=== PATIENT | male | born 1975 | race African-American/Black ===

== ENCOUNTER → 2020-09-21 09:16 | Outpatient (BNVA) | payer MEDICARE, MEDICAID, SELFPAY | PROVIDERS: PCP Hospitalist; Visit Provider Urology | DX: N40.1 Benign prostatic hyperplasia with lower urinary tract symptoms (principal); R35.1 Nocturia | CPT/HCPCS: 51798; 99212 ==

== ENCOUNTER 2021-10-15 13:04 | Emergency (ER) | payer MEDICARE, MEDICAID, SELFPAY ==
--- NOTE | ~2021-10-15 | XR_ITS ---
EXAMINATION: RIGHT HIP AND RIGHT KNEE X-RAYS CLINICAL INFORMATION: Fall. Pain. COMPARISON: None TECHNIQUE: One view of the pelvis, 2 views of the right hip and 4 views of the right knee FINDINGS: Pelvis and right hip: Bone alignment is normal. No fracture or dislocation is seen. There is arthritis at the right hip joint with joint space narrowing and osteophyte formation. Bones of the pelvis are unremarkable. The left hip joint is unremarkable. Right knee: Bone alignment is normal. No acute fracture or dislocation is seen seen. There is an old healed fracture of the distal femoral shaft. There is a severe arthritis at the femoral tibial and patellofemoral joints with joint space narrowing and osteophyte formation. There is no significant joint effusion. There may be an ossified intra-articular loose body posteriorly. There is atherosclerotic disease. XR/XR hip RT w PEL1V IMPRESSION: Pelvis and right hip: Degenerative changes. No fracture is seen. Right knee: Old healed femoral shaft fracture. Severe right hip arthritis.
--- NOTE | ~2021-10-15 | CT_ITS ---
EXAMINATION: CT HEAD WITHOUT CONTRAST CLINICAL INFORMATION: Fall. Head injury. COMPARISON: None TECHNIQUE: Contiguous axial imaging was performed from the skull base to vertex without intravenous administration of contrast. This CT examination was performed using dose optimization techniques as appropriate, variously including the following: *Automated exposure control *Adjustment of mA and/or kV according to patient size (this includes techniques or standardized protocols for targeted exams where dose is matched to indication/reason for exam; i.e. extremities or head) *Use of iterative reconstruction technique DLP: 1823 mGy-cm FINDINGS: Exam is limited due to motion artifact. There is no evidence of an extra-axial collection. There is no evidence of intra or extra-axial hemorrhage. The ventricles and extra-axial CSF spaces are appropriate. There is a large area of low attenuation in the left temporal, frontal and parietal lobes suggestive of infarct. No mass, mass effect or other infarct is seen. Review at bone windows is normal. No skull fracture is seen. Visualized paranasal sinuses, mastoid air cells and middle ears are clear. CT/CT head/brain wo con IMPRESSION: Limited exam due to motion artifact. Large left hemisphere infarct involving the frontal parietal and temporal lobes. No old exams are available for comparison and age cannot be accurately determined by CT however infarcts are probably old. This could be better evaluated with MRI clinically indicated.
--- NOTE | ~2021-10-15 | CT_ITS ---
EXAMINATION: CT CERVICAL SPINE WITHOUT CONTRAST CLINICAL INFORMATION: Fall. Head injury. COMPARISON: None TECHNIQUE: Axial images through the cervical spine without contrast. Sagittal and coronal reconstructions on the technologist workstation were performed. This CT examination was performed using dose optimization techniques as appropriate, variously including the following: *Automated exposure control *Adjustment of mA and/or kV according to patient size (this includes techniques or standardized protocols for targeted exams where dose is matched to indication/reason for exam; i.e. extremities or head) *Use of iterative reconstruction technique DLP: 877 mGy-cm FINDINGS: Bone alignment is normal. No fracture or dislocation is seen. There is degenerative spondylosis and degenerative disc disease from C3-C4 to C5-C6. Prevertebral soft tissues are normal. Visualized lung apices are clear. CT/CT cervical spine wo con IMPRESSION: Degenerative changes. No fracture seen. Fleischner guidelines were followed.
--- NOTE | ~2021-10-15 | XR_ITS ---
EXAMINATION: RIGHT HIP AND RIGHT KNEE X-RAYS CLINICAL INFORMATION: Fall. Pain. COMPARISON: None TECHNIQUE: One view of the pelvis, 2 views of the right hip and 4 views of the right knee FINDINGS: Pelvis and right hip: Bone alignment is normal. No fracture or dislocation is seen. There is arthritis at the right hip joint with joint space narrowing and osteophyte formation. Bones of the pelvis are unremarkable. The left hip joint is unremarkable. Right knee: Bone alignment is normal. No acute fracture or dislocation is seen seen. There is an old healed fracture of the distal femoral shaft. There is a severe arthritis at the femoral tibial and patellofemoral joints with joint space narrowing and osteophyte formation. There is no significant joint effusion. There may be an ossified intra-articular loose body posteriorly. There is atherosclerotic disease. XR/XR knee RT 4V IMPRESSION: Pelvis and right hip: Degenerative changes. No fracture is seen. Right knee: Old healed femoral shaft fracture. Severe right hip arthritis.
[2021-10-15 13:15] VITALS: BP 111/67; BP 114/69; PULSE 97; PULSE 98; RESP 16; TEMP 36.9; O2SAT 97; O2SAT 98; BMI 35.6
--- NOTE | 2021-10-15 14:08 | ECG_ITS ---
Test Reason : fall Blood Pressure : / mmHG Vent. Rate : 087 BPM Atrial Rate : 000 BPM P-R Int : 000 ms QRS Dur : 088 ms QT Int : 354 ms P-R-T Axes : 000 016 025 degrees QTc Int : 425 ms Poor data quality Normal sinus rhythm Nonspecific ST abnormality Abnormal ECG No previous ECGs available Referred By: Catherine Lopez Electronically Signed By:LYLA PEDRO MD
--- NOTE | 2021-10-15 14:29 | ED_ITS ---
HPI - Fall General Chief Complaint: Fall Stated Complaint: R HIP PAIN W/ROTATION S/P FALL OOB FROM SNF Time Seen by Provider: 10/15/21 14:06 Source: EMS Mode of arrival: EMS Limitations: physical limitation (Aphasia) History of Present Illness HPI Narrative: Patient is a 46-year-old male with a history of CVA and subsequent aphasia, type 2 diabetes mellitus, hypertension, COPD, obesity, dysphagia, GERD, hyperlipi demia, BPH, vascular dementia, schizophrenia. He is coming from a group home facility, [facility]. Facility staff report a fall to the floor from his bed with positive head strike, unknown LOC, and report of right leg pain. It is difficult to obtain history from patient due to his expressive aphasia. When asked review of symptoms he does report yes to pain of his right hip and right knee, reports hitting his head. denies headache, vision changes, chest pain, shortness of breath nausea, vomiting, abdominal pain pain to the left leg, pain to the arms. MD complaint: fall Onset (ago): hour(s) Fall from: out of bed Fall witnessed: yes, by living facility staff Place fall occurred: home Loss of consciousness: unsure Prolonged down time: no Related Data Home Medications Medication Instructions Recorded Confirmed COVID-19 vacc,mRNA(Pfizer)(PF) 30 ml IM 09/21/20 mcg/0.3 mL IM susp (purple) atorvastatin 40 mg tablet 40 mg PO DAILY 09/21/20 divalproex 250 mg tablet,delayed 250 mg PO BID 09/21/20 release divalproex 500 mg tablet,delayed 500 mg PO BID 09/21/20 release dulaglutide 1.5 mg/0.5 mL mg SUBCUT 09/21/20 subcutaneous pen injector famotidine 20 mg tablet 20 mg PO BID 09/21/20 haloperidol 5 mg tablet 5 mg PO BID 09/21/20 insulin human U-100 NPH-regulr SUBCUT 09/21/20 70-30 mix 100 unit/mL subcutaneous susp lactulose 10 gram/15 mL oral PO 09/21/20 solution levocarnitine 330 mg tablet mg PO 09/21/20 lisinopril 5 mg tablet 5 mg PO DAILY 09/21/20 metformin 1,000 mg tablet 1,000 mg PO BID 09/21/20 pregabalin 50 mg capsule mg PO 09/21/20 propranolol 10 mg tablet 10 mg PO BID 09/21/20 solifenacin 5 mg tablet mg PO 09/21/20 tamsulosin 0.4 mg capsule 0.4 mg PO DAILY 09/21/20 Allergies Allergy/AdvReac Type Severity Reaction Status Date / Time No Known Allergies Allergy Verified 09/21/20 09:35 Review of Systems Review of Systems: patient minimally verbal due to aphasia, able to answer yes / no to questions, this is baseline mentation per group home facility staff. Constitutional: No fever, chills, weakness. HEENT: No visual changes. No hearing loss, runny nose or sore throat. Skin: No rash or itching. Cardiovascular: No chest pain. No palpitations or pedal edema. Respiratory: No shortness of breath or cough. Gastrointestinal: No, nausea, vomiting or diarrhea. No abdominal pain or blood in stool. Genitourinary: No burning micturition. No urinary frequency or incontinence. Neurologic: No headache, dizziness, syncope, numbness or tingling in the extremities. No change in bowel or bladder control. Musculoskeletal: positive left hip pain. Positive left knee pain Hematologic: No bleeding or bruising. Psychiatric:No depression or anxiety. Yes all other systems are reviewed and are negative [facility] Past Medical History Medical History Benign prostatic hyperplasia with lower urinary tract symptoms BPH (benign prostatic hyperplasia) BPH associated with nocturia Schizophrenia Urinary incontinence Social History Social History Alcohol intake: never Advance Directives: No Advance Directives Information Provided: No Physical Exam Vital Signs: Vital Signs: Last Vital Signs Temp 98.4 F 10/15/21 13:15 Pulse 91 10/15/21 15:43 Resp 16 10/15/21 13:15 BP 126/66 10/15/21 15:43 Pulse Ox 98 10/15/21 15:43 BMI result Body Mass Index 35.6 Vital signs have been reviewed as normal and appeared to be correct. Blood pressure normal.? Heart rate normal.? Respiration rate normal. Temperature normal.? Oxygen saturation normal. Appearance: Alert.? unable to assess orientation due to aphasia. No acute distress.?Normal affect. Head: Normocephalic, atraumatic. No head, sinus or TMJ tenderness.? Eyes: Sclera white, conjunctiva pink. PERRL, 3 mm bilaterally. EOMi.?No Nystagmus. No raccoon eyes Ears: Bilateral ear canals clear, TM visible with good cone of light.? No Noel sign. ENT: Pharynx normal.?? Neck: Normal inspection.? Neck supple.?No midline cervical spine tenderness step-offs, deformities. CVS: Heart sounds normal. Normal heart rate and rhythm.? Pulses normal, palpable 2+ dorsalis pedis and posterior tibial pulses bilaterally.?? Respiratory: No respiratory distress.? Lung sounds clear to auscultation bilaterally?? Abdomen: Soft and non-tender. Normoactive bowel sounds. No pulsatile mass.?? Skin: + right medial great toe significant amount dry callused skin, with crack/ linear laceration, no active bleeding. Skin warm and dry.? Normal skin color.? Normal skin turgor.?? Extremities/ MSK: + right lower extremity externally rotated, no shortening, able to performed PROM of right lower extremity. No lower extremity edema.? No calf ttp? Neuro: Baseline ashasia. CN II-XII intact, normal sensory observed, normal coordination observed. Motor strength: right upper extremity 5 /5, left upper e xtremity 5 /5, right lower extremity 5 /5, left lower extremity 5/5.?Speech: baseline. Course Course Course Narrative: Patient is a 46-year-old male with a history of CVA and aphasia presenting to the emergency department for evaluation after a fall out of bed today with report of positive head strike and right leg pain. I spoke with nurse Beebe from [facility] One we advise is at baseline patient ambulates independently performs ADLs independently, is continent of bladder and bowel, and denies any residual weakness to the right or left side from prior CVA. Given patient's history and aphasia will obtain CBC to evaluate for leukocytosis or anemia, CMP to evaluate for abnormal electrolytes/ normal renal function/ abnormal hepatic function, troponin an EKG to evaluate for ischemia, urinalysis to evaluate for urinary tract infection, in addition to CT of the head and cervical spine to evaluate for ICH/ SAH/ fracture/ dislocation, and x-ray imaging of the right hip and right knee to evaluate for fracture dislocation. Reevaluation(s) Reevaluation #1: COVID-19 testing is negative. CBC and CMP is unremarkable. Troponin is elevated 52.4 no prior levels available for comparison, initial EKG is not conc erning for any acute ischemia, there is a notable amount of artifact, will obtain repeat EKG, and repeat troponin in 3 hours. Time: 15:06 Reevaluation #2: X-ray of the right hip reveals degenerative changes/ severe arthritis with no acute fracture dislocation. X-ray of the right knee indicates an old healed distal femoral shaft fracture, no acute fracture dislocation. Repeat examination of the right lower extremity reveals full AROM of the right hip and knee. He is ambulatory with slow steady gait, without assistance. Time: 16:00 Reevaluation #3: CT of the cervical spine indicates no acute fractures or dislocation. CT of the head reveals a large left hemisphere infarct involving the frontal parietal and temporal lobes there are no prior exams available for comparison and cannot determine age by CT. CT of head ordered due to concern for intracranial hemorrhage given head injury, no neurological deficit that was concerning for infarct. I consulted with hospitalist Dr. Gastelum regarding patient case. He is very familiar with this patient outside of the acute care setting, and he advises that he has no acute concerns for alterations in mental status or concerns of acute infarct, he feels it would be appropriate for patient to be discharged back to group home facility. This is most likely consistent with his history of CVA, rather than acute infarct, he has no acute neurological deficit. At this time, will await patient's repeat troponin to ensure negative delta troponin/ no acute ischemia, and patient will be transferred back to group home facility. ED attending physician Dr. Barron was agreeable with the care as well. Patient signed out to Christina Tarango NURSING PROGRAM MANAGER. Time: 17:20 MDM - Fall Medical Records Attestation: I reviewed the patient's medical records. Lab Data Attestation: I reviewed the patient's lab results. Result diagrams: 10/15/21 14:28 10/15/21 14: Labs: Lab Results 10/15/21 10/15/21 10/15/21 Range/Units 14:28 14:28 14:28 WBC 9.9 (4.8-10.8) X10*3/uL RBC 4.93 (4.60-5.80) X10*6/uL Hgb 14.6 (14.0-18.0) g/dl Hct 44.1 (42.0-52.0) % MCV 89.5 (80.0-98.0) fL MCH 29.6 (27.0-33.0) pg MCHC 33.1 (31.0-36.0) g/dl RDW 13.1 (11.0-16.0) % Plt Count 231 (160-400) X10*3/uL MPV 10.0 (9.4-12.4) fL Immature Gran % (Auto) 0.6 H (0.0-0.4) % Neut % (Auto) 61.3 (45-73) % Lymph % (Auto) 27.7 (20-40) % Coke % (Auto) 9.6 (2-11) % Eos % (Auto) 0.6 (0-4) % Baso % (Auto) 0.2 (0-2) % Lymph # (Auto) 2.8 (1.2-4.9) X10*3/uL Coke # (Auto) 1.0 (0.1-1.2) X10*3/uL Eos # (Auto) 0.1 (0.0-0.4) X10*3/uL Baso # (Auto) 0.0 (0.0-0.2) X10*3/uL Abs Immat Gran (auto) 0.06 H (0.00-0.03) X10*3/uL Absolute Neuts (auto) 6.1 (2.0-8.3) x10*3/uL Absolute Nucleated RBC 0.000 (0.0-0.012) X10*3/uL Nucleated RBC % (auto) 0.0 (0.0-0.2) /100WBC Sodium 138 (135-145) mmol/L Potassium 4.6 (3.3-5.1) mmol/L Chloride 103 (96-108) mmol/L Carbon Dioxide 27 (22-29) mmol/L Anion Gap 13 (12-20) BUN 10 (9-16) mg/dL Creatinine 0.91 (0.5-1.4) mg/dL Estim Creat Clear Calc 155.5 Estimated GFR > 60 Random Glucose 94 (60-115) mg/dL Calcium 9.8 (8.4-10.2) mg/dL Magnesium 2.0 (1.6-2.6) mg/dL Total Bilirubin 0.4 (0.0-1.0) mg/dL AST 30 (5-37) U/L ALT 32 (0-40) U/L Alkaline Phosphatase 89 (39-117) U/L Troponin I High Sens 52.4 H (<3.5-35.0) ng/L Total Protein 7.2 (6.5-8.0) g/dL Albumin 4.1 (3.5-5.0) g/dL COVID-19 (RITESH) (Negative) COVID-19 Clin Com 10/15/21 Range/Units 14:28 WBC (4.8-10.8) X10*3/uL RBC (4.60-5.80) X10*6/uL Hgb (14.0-18.0) g/dl Hct (42.0-52.0) % MCV (80.0-98.0) fL MCH (27.0-33.0) pg MCHC (31.0-36.0) g/dl RDW (11.0-16.0) % Plt Count (160-400) X10*3/uL MPV (9.4-12.4) fL Immature Gran % (Auto) (0.0-0.4) % Neut % (Auto) (45-73) % Lymph % (Auto) (20-40) % Coke % (Auto) (2-11) % Eos % (Auto) (0-4) % Baso % (Auto) (0-2) % Lymph # (Auto) (1.2-4.9) X10*3/uL Coke # (Auto) (0.1-1.2) X10*3/uL Eos # (Auto) (0.0-0.4) X10*3/uL Baso # (Auto) (0.0-0.2) X10*3/uL Abs Immat Gran (auto) (0.00-0.03) X10*3/uL Absolute Neuts (auto) (2.0-8.3) x10*3/uL Absolute Nucleated RBC (0.0-0.012) X10*3/uL Nucleated RBC % (auto) (0.0-0.2) /100WBC Sodium (135-145) mmol/L Potassium (3.3-5.1) mmol/L Chloride (96-108) mmol/L Carbon Dioxide (22-29) mmol/L Anion Gap (12-20) BUN (9-16) mg/dL Creatinine (0.5-1.4) mg/dL Estim Creat Clear Calc Estimated GFR Random Glucose (60-115) mg/dL Calcium (8.4-10.2) mg/dL Magnesium (1.6-2.6) mg/dL Total Bilirubin (0.0-1.0) mg/dL AST (5-37) U/L ALT (0-40) U/L Alkaline Phosphatase (39-117) U/L Troponin I High Sens (<3.5-35.0) ng/L Total Protein (6.5-8.0) g/dL Albumin (3.5-5.0) g/dL COVID-19 (RITESH) Negative (Negative) COVID-19 Clin Com See Note Imaging Data CT scan - head: Radiologist's impression: Head: IMPRESSION: Limited exam due to motion artifact. Large left hemisphere infarct involving the frontal parietal and temporal lobes. No old exams are available for comparison and age cannot be accurately determined by CT however infarcts are probably old. This could be better evaluated with MRI clinically indicated. Cervical spine IMPRESSION: Degenerative changes. No fracture seen.? XR right hip and right knee: Radiologist's impression: IMPRESSION: Pelvis and right hip: Degenerative changes. No fracture is seen. ? Right knee: Old healed femoral shaft fracture. Severe right hip arthritis. ECG Data Attestation: I personally reviewed and interpreted this ECG as follows: ECG interpretation date: 10/15/21 ECG interpretation time: 14:45 Prior ECG tracings: not available for review Interpretation: Rate: 87 Rhythm:? sinus rhythm Criders:? normal Normal QRS complex.?? ST T wave :?? no ST elevation, no ST depression, no T-wave inversion qTC: 425 prior studies:? none The study has been interpreted contemporaneously by me. repeat EKG 10/15/2021 15:44 Rate: 87 Rhythm:? normal sinus rhythm Criders:? normal Normal P waves.? Normal SACHI.?? Normal QRS complex.?? ST T wave :??no ST elevation, no ST depression, no T-wave inversion qTC: 428 The study has been interpreted contemporaneously by me. Discharge Plan Discharge Clinical Impression: Fall, Arthritis of hip Patient Disposition: [facility] Transfer Details: Transfer back to [facility] Additional Instructions: Patient was evaluated in the emergency department after a fall sustaining an injury to the right hip and with reports of head strike. CT reveals no acute intracranial hemorrhage, there is a large left hemisphere infarct involving the frontal parietal and temporal lobes with no comparison of prior infarct, this is most likely consistent with prior CVA. X-ray of the right knee was normal x- ray of the right hip reveals severe arthritis. Patient should return to the emergency department with any new or worsening symptoms or concerns
[2021-10-15 14:32] LABS: MANUAL DIFF FLAG NO
[2021-10-15 14:34] LABS: Basophils Percent Auto 0.2 % (0-2); Eosinophils Absolute Auto 0.1 X10*3/uL (0.0-0.4); Eosinophils Percent Auto 0.6 % (0-4); Hematocrit 44.1 % (42.0-52.0); Hemoglobin 14.6 g/dl (14.0-18.0); Imm Gran Abs Auto 0.06 X10*3/uL (0.00-0.03); Imm Gran Pct Auto 0.6 % (0.0-0.4); Lymphocytes Absolute Auto 2.8 X10*3/uL (1.2-4.9); Lymphocytes Percent Auto 27.7 % (20-40); Mean Corpuscular HGB Conc 33.1 g/dl (31.0-36.0); Mean Corpuscular Hemoglobin 29.6 pg (27.0-33.0); Mean Corpuscular Volume 89.5 fL (80.0-98.0); Monocytes Percent Auto 9.6 % (2-11); Neutrophils Absolute Auto 6.1 x10*3/uL (2.0-8.3); Neutrophils Percent Auto 61.3 % (45-73); Platelet Count 231 X10*3/uL (160-400); Red Blood Count 4.93 X10*6/uL (4.60-5.80); Red Cell Distribution Width 13.1 % (11.0-16.0); White Blood Count 9.9 X10*3/uL (4.8-10.8)
[2021-10-15 14:54] LABS: COVID-19 Test Negative (Negative)
[2021-10-15 14:55] LABS: IDNOW Serial# 9DD0AD1C
[2021-10-15 15:01] LABS: Alanine Aminotransferase 32 U/L (0-40); Albumin Level 4.1 g/dL (3.5-5.0); Alkaline Phosphatase 89 U/L (39-117); Anion Gap 13 (12-20); Aspartate Amino Transferase 30 U/L (5-37); Bilirubin Total 0.4 mg/dL (0.0-1.0); Blood Urea Nitrogen 10 mg/dL (9-16); Calcium 9.8 mg/dL (8.4-10.2); Carbon Dioxide 27 mmol/L (22-29); Chloride 103 mmol/L (96-108); Creatinine Clr Calc Pharmacy 155.5; Estimated Glomerular Filt Rate > 60; Glucose Random 94 mg/dL (60-115); Potassium 4.6 mmol/L (3.3-5.1); Sodium 138 mmol/L (135-145); Total Protein 7.2 g/dL (6.5-8.0); Troponin-I High Sensitivity 52.4 ng/L (<3.5-35.0)
--- NOTE | 2021-10-15 15:12 | ECG_ITS ---
Test Reason : REPEAT Blood Pressure : / mmHG Vent. Rate : 087 BPM Atrial Rate : 087 BPM P-R Int : 114 ms QRS Dur : 086 ms QT Int : 356 ms P-R-T Axes : 066 020 024 degrees QTc Int : 428 ms Normal sinus rhythm Normal ECG When compared with ECG of 15-OCT-2021 14:34, No significant changes seen Referred By: Catherine Lopez Electronically Signed By:LYLA PEDRO MD
[2021-10-15] MEDS: Acetaminophen 325 MG TABLET 975 MG PO (15:40)
[2021-10-15 15:43] VITALS: BP 126/66; PULSE 91; O2SAT 98
[2021-10-15 18:17] LABS: Troponin-I High Sensitivity 36.6 ng/L (<3.5-35.0)
== END 2021-10-15 20:07 | disposition skilled nursing facility (03) ==
PROVIDERS: Nurse Practitioner Family; Emergency Provider Emergency Medicine
DX: M16.11 Unilateral primary osteoarthritis, right hip (principal); M25.551 Pain in right hip; M25.561 Pain in right knee; Z91.81 History of falling; Z20.822 Contact with and (suspected) exposure to COVID-19; I69.320 Aphasia following cerebral infarction; I10 Essential (primary) hypertension; F01.50 Vascular dementia, unspecified severity, without behavioral disturbance, psychotic disturbance, mood disturbance, and anxiety; E11.9 Type 2 diabetes mellitus without complications; E78.5 Hyperlipidemia, unspecified; F20.9 Schizophrenia, unspecified; Z79.4 Long term (current) use of insulin
CPT/HCPCS: 36415; 70450; 72125; 73502; 73564; 80053; 83735; 84484; 85025; 87635; 93005; 99284

== ENCOUNTER 2021-12-21 15:43 | Emergency (ER) | payer MEDICARE, MEDICAID, SELFPAY ==
--- NOTE | ~2021-12-21 | CT_ITS ---
EXAMINATION: CT HEAD WITHOUT CONTRAST (STROKE PROTOCOL) CLINICAL INFORMATION: Stroke protocol. Right-sided weakness. COMPARISON: CT head 10/15/2021 TECHNIQUE: Contiguous axial imaging was performed from the skull base to vertex without intravenous administration of contrast. This CT examination was performed using dose optimization techniques as appropriate, variously including the following: *Automated exposure control *Adjustment of mA and/or kV according to patient size (this includes techniques or standardized protocols for targeted exams where dose is matched to indication/reason for exam; i.e. extremities or head) *Use of iterative reconstruction technique DLP: 922 mGy-cm FINDINGS: Focal encephalomalacia from old infarct in left MCA territory unchanged since prior CT exam. There are 2 additional areas of hypodensity involving the brain parenchyma. There is focal encephalomalacia in the right medial frontal lobe and in the left occipital lobe both of which were not present on the prior study of 10/15/2021. There is no intracranial hemorrhage, hematoma, or extra-axial fluid collection. The ventricles are normal in size. There is no hydrocephalus, edema, or mass effect. The kumar-white matter differentiation appears symmetric. The visualized sinuses and middle ears and mastoid air cells show no significant mucosal thickening. There are no air-fluid levels. CT/CT head for stroke IMPRESSION: 1. There is no intracranial hemorrhage. No mass effect. 2. Old left MCA territory infarct. 3. 2 focal areas of focal low attenuation, encephalomalacia, involving the right frontal lobe and left occipital lobe. These are new since CT 10/15/2021. MRI may be helpful for further assessment. This critical result was discussed Robinson GATES@4:07pm on 12/21/2021. It was ascertained that the content and urgency of the report was understood at the time of direct communication.
--- NOTE | ~2021-12-21 | CT_ITS ---
EXAMINATION: CT ANGIOGRAM HEAD CT ANGIOGRAM NECK CLINICAL INFORMATION: Right-sided weakness. Stroke. COMPARISON: CT head from 12/21/2021 and 10/15/2021. TECHNIQUE: Initial noncontrast field services director imaging of the head and neck was performed. Comparison is made with noncontrast head CT from earlier today. Test bolus sequences followed by intravenous administration 140 mL of Omnipaque 350. Helical imaging was performed in the axial plane from the aortic arch to the skull vertex. Delayed postcontrast imaging of the head was also performed. The data was processed at the biochemistry technologist's workstation for generation of MIP sequences. Angled MIPs and volume rendered reformatted images were also generated at an offline 3D workstation. Stenoses are assessed in accordance with NASCET criteria unless otherwise indicated. This CT examination was performed using dose optimization techniques as appropriate, variously including the following: *Automated exposure control. *Adjustment of mA and/or kV according to patient size (this includes techniques or standardized protocols for targeted exams where dose is matched to indication/reason for exam; i.e. extremities or head). *Use of iterative reconstruction technique. DLP: 2525 mGy-cm FINDINGS: CT Head: Significantly motion degraded exam. There are chronic regions of encephalomalacia within the left frontotemporal lobes, anterior parasagittal right frontal lobe, and right deep frontal white matter. There is a region of encephalomalacia within the inferior aspect of the left occipital lobe that is new compared to exam from 10/15/2021. Wallerian degeneration of the left cerebral peduncle. No demonstrated evidence of acute intracranial hemorrhage. Exvacuodilatation of the lateral ventricles. Otherwise, the ventricles and sulcal spaces are proportional without evidence of obstructive hydrocephalus. No midline shift. No demonstrated extra-axial fluid collection. No demonstrated pathologic intra-axial enhancement. Normal opacification of the superior sagittal, straight, transverse, and sigmoid sinuses. No acute soft tissue or osseous abnormalities. Mild mucosal thickening of the paranasal sinuses. The mastoid air cells and middle ear cavities are clear. CT Neck: The thyroid gland and remaining cervical soft tissues are within normal limits. Straightening of the normal cervical lordosis. Moderate degenerative disc disease from C3-C6 with disc-osteophyte complex formation. Facet and uncovertebral joint arthropathy leads to osseous encroachment on the neural foramina from C2-C6. CT Upper Chest: The visualized lung apices and upper mediastinum are within normal limits. Neck CTA: Moderately motion degraded exam. Aortic Arch: Normal contour and caliber. Two vessel branching pattern of the arch with left common carotid artery arising from the brachiocephalic trunk. Great Vessel Origins: No significant stenosis of the branch origins. Right Common Carotid Artery: No focal stenosis or occlusion. Cervical Right Internal Carotid Artery: Mild calcific atherosclerotic disease of the carotid bulb and proximal internal carotid artery without flow-limiting stenosis. Left Common Carotid Artery: No focal stenosis or occlusion. Cervical Left Internal Carotid Artery: Mild calcific atherosclerotic disease of the carotid bulb and proximal internal carotid artery without flow-limiting stenosis. Cervical Right Vertebral Artery: Co-dominant. No demonstrated focal stenosis or occlusion. Cervical Left Vertebral Artery: Co-dominant. No demonstrated focal stenosis or occlusion. Brain CTA: CTA of the head is nondiagnostic secondary to significant motion degradation. On the limited views of the intracranial structures, there is maintained opacification of the intracranial segments of the internal carotid arteries bilaterally. There is at least partial opacification of the proximal M1 segments of the middle cerebral arteries bilaterally. There appears to be diminished opacification of the lateral aspect of the M1 segment of the left MCA with diminished arborization in the region of chronic encephalomalacia. Relatively normal arborization of the right MCA. Opacification of the distal segments of the right FAHAD appear to some degree diminished relative to the contralateral side. Maintained opacification of the basilar artery. The hinging machine operator are not well imaged on this exam. CT/CT angio head neck stroke IMPRESSION: Significantly motion degraded exam. CTA of the head is essentially nondiagnostic. CT of the neck and mildly to moderately motion degraded without demonstrated evidence of proximal occlusion or flow-limiting stenosis. Chronic regions of encephalomalacia within the left frontotemporal lobes and right frontal lobe. There is also a region of encephalomalacia within the left occipital lobe has chronic appearing characteristics but is new compared to exam from 10/15/2021. No evidence of acute intracranial hemorrhage. Moderate to advanced multilevel degenerative spondylosis arthropathy of the cervical spine. This critical result was discussed with Dr. Montero at 16:51 on 12/21/2021 and it was ascertained that the content and urgency of the report was understood at the time of direct communication.
--- NOTE | 2021-12-21 15:44 | ECG_ITS ---
Test Reason : SEIZURE Blood Pressure : / mmHG Vent. Rate : 084 BPM Atrial Rate : 084 BPM P-R Int : 136 ms QRS Dur : 094 ms QT Int : 366 ms P-R-T Axes : 071 009 027 degrees QTc Int : 432 ms Normal sinus rhythm Normal ECG When compared with ECG of 15-OCT-2021 15:44, No significant change was found Referred By: Robinson Gonzalez Electronically Signed By:LYLA PEDRO MD
[2021-12-21 15:46] VITALS: BP 127/80; PULSE 80; O2SAT 100
[2021-12-21 15:53] LABS: Prothrombin Time Whole Bld POC 13.1 sec (11.1-13.5); ~PT, ~INR - Anti Coag Clinic 1.1 (0.9-1.1)
[2021-12-21 15:54] LABS: Glucose, Whole Blood 84 mg/dL (60-115)
[2021-12-21] MEDS: iohexoL 350 MG/ML 100 ML INFUS..BTL IV (16:22)
--- NOTE | 2021-12-21 16:30 | ED.NEUROSD ---
HPI - Neuro Symptoms/Deficit General Chief Complaint: Stroke Stated Complaint: STROKE ALERT Time Seen by Provider: 12/21/21 15:44 Source: EMS and RN notes reviewed Mode of arrival: EMS Limitations: language barrier History of Present Illness HPI Narrative: [facility] is 46 [facility] with history of left MCA infarct with left-sided weakness and aphasia patient is independent as such with weakness today just prior to arrival at 15:00 patient staff noticed patient is more confused and has difficulty in walking. With increased weakness on the right side with increased confusion not able to follow any command . By the time patient had a CT scan done at 16:15 patient return to baseline moving his right extremities saying all more awake answering question to yes to all questions she is his baseline CT scan showed 2 new focal area of low attenuation in the right frontal and left occipital area which were new from 10/15/2021 patient is on baby aspirin Related Data Home Medications Medication Instructions Recorded Confirmed COVID-19 vacc,mRNA(Pfizer)(PF) 30 ml IM 09/21/20 mcg/0.3 mL IM susp (purple) atorvastatin 40 mg tablet 40 mg PO DAILY 09/21/20 divalproex 250 mg tablet,delayed 250 mg PO BID 09/21/20 release divalproex 500 mg tablet,delayed 500 mg PO BID 09/21/20 release dulaglutide 1.5 mg/0.5 mL mg SUBCUT 09/21/20 subcutaneous pen injector famotidine 20 mg tablet 20 mg PO BID 09/21/20 haloperidol 5 mg tablet 5 mg PO BID 09/21/20 insulin human U-100 NPH-regulr SUBCUT 09/21/20 70-30 mix 100 unit/mL subcutaneous susp lactulose 10 gram/15 mL oral PO BID 09/21/20 solution levocarnitine 330 mg tablet 660 mg PO TID 09/21/20 12/21/21 lisinopril 5 mg tablet 10 mg PO DAILY 09/21/20 12/21/21 metformin 1,000 mg tablet 1,000 mg PO BID 09/21/20 pregabalin 50 mg capsule mg PO 09/21/20 propranolol 10 mg tablet 10 mg PO BID 09/21/20 solifenacin 5 mg tablet mg PO 09/21/20 tamsulosin 0.4 mg capsule 0.4 mg PO BEDTIME 09/21/20 12/21/21 acetaminophen 325 mg tablet 650 mg PO Q4H PRN 12/21/21 12/21/21 (Tylenol) aspirin 81 mg chewable tablet 81 mg PO DAILY 12/21/21 12/21/21 bisacodyl 10 mg rectal suppository 10 mg [place] DAILY PRN 12/21/21 12/21/21 simethicone 80 mg tablet 80 mg PO TID 12/21/21 12/21/21 solifenacin 5 mg tablet (Vesicare) 5 mg PO DAILY 12/21/21 12/21/21 Previous Rx's Medication Instructions Recorded clopidogrel 75 mg tablet (Plavix) 75 mg PO DAILY #30 tab 12/21/21 Allergies Allergy/AdvReac Type Severity Reaction Status Date / Time No Known Allergies Allergy Verified 09/21/20 09:35 Review of Systems Review of Systems: Yes Unobtainable due to mental status [facility] Past Medical History Medical History Benign prostatic hyperplasia with lower urinary tract symptoms BPH (benign prostatic hyperplasia) BPH associated with nocturia Schizophrenia Urinary incontinence Social History Social History Alcohol intake: never Patient Tobacco Use Status: Never used Tobacco Use of substances other than those prescribed or required for medical reasons: No Advance Directives: No Advance Directives Information Provided: No Physical Exam Vital Signs: Vital Signs: Last Vital Signs Temp 98.3 F 12/21/21 23:29 Pulse 79 12/21/21 23:29 Resp 16 12/21/21 23:29 BP 142/84 H 12/21/21 23:29 Pulse Ox 99 12/21/21 23:29 BMI result Body Mass Index 0.0 Appearance: Alert. Oriented 1. No acute distress. Eyes: PERRLA, No Nystagmus ENT: Pharynx normal. Oral Mucosa moist Neck: Normal inspection. Neck supple. CVS: Normal heart rate and rhythm. Pulses normal. Respiratory: No respiratory distress. Equal air entry bilateral, no wheezing/rales/rhonchi Abdomen: Soft and nontender. Bowel sounds are present, no mass palpable, no CVA tenderness Skin: Skin warm and dry. Normal skin color. Normal skin turgor. Extremities: No lower extremity edema. No calf tenderness Neuro: Oriented X 3. Aphasic answering all the questions to yes Right-sided dense hemiparesis able to lift his upper extremities and lower extremities normally on the left side, able to lift right leg upper extremity and lower extremity with no drift but weakness 4/5 MDM - Neuro Symptoms/Deficit MDM Narrative Medical decision making narrative: On arrival patient was confused not able to come follow commands within 25 minutes of arrival patient was able to move his right upper extremity lower extremity . CTH negative for any acute infarct, CTA H/N negative for LVO Case discussed Dr. Whiting neurologist advised to add Plavix along with aspirin patient able to ambulate without customer care assistant in the ER at the time of discharge to residential Lab Data Attestation: I reviewed the patient's lab results. Result diagrams: 12/21/21 16:45 12/21/21 16:45 Labs: Lab Results 12/21/21 12/21/21 12/21/21 Range/Units 15:46 15:47 16:45 WBC 7.4 (4.8-10.8) X10*3/uL RBC 4.86 (4.60-5.80) X10*6/uL Hgb 14.2 (14.0-18.0) g/dl Hct 43.3 (42.0-52.0) % MCV 89.1 (80.0-98.0) fL MCH 29.2 (27.0-33.0) pg MCHC 32.8 (31.0-36.0) g/dl RDW 13.0 (11.0-16.0) % Plt Count 238 (160-400) X10*3/uL MPV 9.5 (9.4-12.4) fL Immature Gran % (Auto) 0.4 (0.0-0.4) % Neut % (Auto) 36.5 L (45-73) % Lymph % (Auto) 50.1 H (20-40) % Hemphill % (Auto) 11.3 H (2-11) % Eos % (Auto) 1.4 (0-4) % Baso % (Auto) 0.3 (0-2) % Lymph # (Auto) 3.7 (1.2-4.9) X10*3/uL Hemphill # (Auto) 0.8 (0.1-1.2) X10*3/uL Eos # (Auto) 0.1 (0.0-0.4) X10*3/uL Baso # (Auto) 0.0 (0.0-0.2) X10*3/uL Abs Immat Gran (auto) 0.03 (0.00-0.03) X10*3/uL Absolute Neuts (auto) 2.7 (2.0-8.3) x10*3/uL Absolute Nucleated RBC 0.000 (0.0-0.012) X10*3/uL Nucleated RBC % (auto) 0.0 (0.0-0.2) /100WBC PT (9.9-13.0) SEC Whole Blood PT 13.1 (11.1-13.5) sec INR (0.9-1.1) Whole Blood INR 1.1 (0.9-1.1) APTT (24.1-38.0) SEC Sodium (135-145) mmol/L Potassium (3.3-5.1) mmol/L Chloride (96-108) mmol/L Carbon Dioxide (22-29) mmol/L Anion Gap (12-20) BUN (9-16) mg/dL Creatinine (0.5-1.4) mg/dL Estim Creat Clear Calc Estimated GFR POC Glucose 84 (60-115) mg/dL Random Glucose (60-115) mg/dL Calcium (8.4-10.2) mg/dL Total Bilirubin (0.0-1.0) mg/dL Direct Bilirubin (0.0-0.5) mg/dL AST (5-37) U/L ALT (0-40) U/L Alkaline Phosphatase (39-117) U/L Ammonia (13-55) umol/L Total Creatine Kinase (38-174) U/L Troponin I High Sens (<3.5-35.0) ng/L Total Protein (6.5-8.0) g/dL Albumin (3.5-5.0) g/dL Urine Color Urine Appearance Urine pH (5.0-8.0) Ur Specific Douglas (1.005-1.025) Urine Protein (NEG-TRACE) MG/DL Urine Glucose (UA) (NEG) MG/DL Urine Ketones (NEG) MG/DL Urine Blood (NEG) Urine Nitrite (NEG) Ur Leukocyte Esterase (NEG) 12/21/21 12/21/21 12/21/21 Range/Units 16:45 16:45 16:45 WBC (4.8-10.8) X10*3/uL RBC (4.60-5.80) X10*6/uL Hgb (14.0-18.0) g/dl Hct (42.0-52.0) % MCV (80.0-98.0) fL MCH (27.0-33.0) pg MCHC (31.0-36.0) g/dl RDW (11.0-16.0) % Plt Count (160-400) X10*3/uL MPV (9.4-12.4) fL Immature Gran % (Auto) (0.0-0.4) % Neut % (Auto) (45-73) % Lymph % (Auto) (20-40) % Hemphill % (Auto) (2-11) % Eos % (Auto) (0-4) % Baso % (Auto) (0-2) % Lymph # (Auto) (1.2-4.9) X10*3/uL Hemphill # (Auto) (0.1-1.2) X10*3/uL Eos # (Auto) (0.0-0.4) X10*3/uL Baso # (Auto) (0.0-0.2) X10*3/uL Abs Immat Gran (auto) (0.00-0.03) X10*3/uL Absolute Neuts (auto) (2.0-8.3) x10*3/uL Absolute Nucleated RBC (0.0-0.012) X10*3/uL Nucleated RBC % (auto) (0.0-0.2) /100WBC PT 12.6 (9.9-13.0) SEC Whole Blood PT (11.1-13.5) sec INR 1.1 (0.9-1.1) Whole Blood INR (0.9-1.1) APTT 29.8 (24.1-38.0) SEC Sodium 137 (135-145) mmol/L Potassium 4.5 (3.3-5.1) mmol/L Chloride 104 (96-108) mmol/L Carbon Dioxide 27 (22-29) mmol/L Anion Gap 11 L (12-20) BUN 9 (9-16) mg/dL Creatinine 0.91 (0.5-1.4) mg/dL Estim Creat Clear Calc TNP Estimated GFR > 60 POC Glucose (60-115) mg/dL Random Glucose 85 (60-115) mg/dL Calcium 9.8 (8.4-10.2) mg/dL Total Bilirubin 0.6 (0.0-1.0) mg/dL Direct Bilirubin 0.2 (0.0-0.5) mg/dL AST 24 (5-37) U/L ALT 47 H (0-40) U/L Alkaline Phosphatase 94 (39-117) U/L Ammonia (13-55) umol/L Total Creatine Kinase 467 H (38-174) U/L Troponin I High Sens < 3.5 D (<3.5-35.0) ng/L Total Protein 7.0 (6.5-8.0) g/dL Albumin 4.1 (3.5-5.0) g/dL Urine Color Urine Appearance Urine pH (5.0-8.0) Ur Specific Douglas (1.005-1.025) Urine Protein (NEG-TRACE) MG/DL Urine Glucose (UA) (NEG) MG/DL Urine Ketones (NEG) MG/DL Urine Blood (NEG) Urine Nitrite (NEG) Ur Leukocyte Esterase (NEG) 12/21/21 12/21/21 Range/Units 16:45 17:35 WBC (4.8-10.8) X10*3/uL RBC (4.60-5.80) X10*6/uL Hgb (14.0-18.0) g/dl Hct (42.0-52.0) % MCV (80.0-98.0) fL MCH (27.0-33.0) pg MCHC (31.0-36.0) g/dl RDW (11.0-16.0) % Plt Count (160-400) X10*3/uL MPV (9.4-12.4) fL Immature Gran % (Auto) (0.0-0.4) % Neut % (Auto) (45-73) % Lymph % (Auto) (20-40) % Hemphill % (Auto) (2-11) % Eos % (Auto) (0-4) % Baso % (Auto) (0-2) % Lymph # (Auto) (1.2-4.9) X10*3/uL Hemphill # (Auto) (0.1-1.2) X10*3/uL Eos # (Auto) (0.0-0.4) X10*3/uL Baso # (Auto) (0.0-0.2) X10*3/uL Abs Immat Gran (auto) (0.00-0.03) X10*3/uL Absolute Neuts (auto) (2.0-8.3) x10*3/uL Absolute Nucleated RBC (0.0-0.012) X10*3/uL Nucleated RBC % (auto) (0.0-0.2) /100WBC PT (9.9-13.0) SEC Whole Blood PT (11.1-13.5) sec INR (0.9-1.1) Whole Blood INR (0.9-1.1) APTT (24.1-38.0) SEC Sodium (135-145) mmol/L Potassium (3.3-5.1) mmol/L Chloride (96-108) mmol/L Carbon Dioxide (22-29) mmol/L Anion Gap (12-20) BUN (9-16) mg/dL Creatinine (0.5-1.4) mg/dL Estim Creat Clear Calc Estimated GFR POC Glucose (60-115) mg/dL Random Glucose (60-115) mg/dL Calcium (8.4-10.2) mg/dL Total Bilirubin (0.0-1.0) mg/dL Direct Bilirubin (0.0-0.5) mg/dL AST (5-37) U/L ALT (0-40) U/L Alkaline Phosphatase (39-117) U/L Ammonia 36 (13-55) umol/L Total Creatine Kinase (38-174) U/L Troponin I High Sens (<3.5-35.0) ng/L Total Protein (6.5-8.0) g/dL Albumin (3.5-5.0) g/dL Urine Color YELLOW Urine Appearance CLEAR Urine pH 7.0 (5.0-8.0) Ur Specific Douglas <= 1.005 (1.005-1.025) Urine Protein NEG (NEG-TRACE) MG/DL Urine Glucose (UA) NEG (NEG) MG/DL Urine Ketones NEG (NEG) MG/DL Urine Blood NEG (NEG) Urine Nitrite NEG (NEG) Ur Leukocyte Esterase NEG (NEG) ECG Data Attestation: I personally reviewed and interpreted this ECG as follows: Interpretation: Normal sinus rhythm heart rate 84 beats per minute normal intervals normal axis no acute STT wave changes impression normal EKG Discharge Plan Discharge Clinical Impression: Transient cerebral ischemia Patient Disposition: Xfer SNF Transfer Details: [facility] [place] Instructions: Transient Ischemic Attack (ED) Additional Instructions: Continue medications as before and add Plavix 75 mg daily Follow with neurologist Prescriptions: New clopidogrel [Plavix] 75 mg tablet 75 mg PO DAILY Qty: 30 0RF No Action acetaminophen [Tylenol] 325 mg Tablet 650 mg PO Q4H PRN (Reason: Fever) 0RF bisacodyl [Biscolax] 10 mg Suppository 10 mg [place] DAILY PRN (Reason: Constipation) 0RF aspirin 81 mg Tablet,Chewable 81 mg PO DAILY 0RF solifenacin [Vesicare] 5 mg Tablet 5 mg PO DAILY 0RF simethicone 80 mg Tablet 80 mg PO TID 0RF levocarnitine 330 mg tablet 660 mg PO TID 0RF tamsulosin 0.4 mg capsule 0.4 mg PO BEDTIME 0RF lisinopril 5 mg tablet 10 mg PO DAILY 0RF Referrals: Vickey Whiting MD [Physician] - 1 week Interventions: ED Discharge Assessment Last Done: 12/22/21 00:01 Discharge Date/Time: 12/22/21 00:04
[2021-12-21] MEDS: 0.9 % Sodium Chloride 1,000 ML 999 ML IV (16:31)
[2021-12-21 16:49] LABS: MANUAL DIFF FLAG NO
[2021-12-21 16:57] LABS: Basophils Percent Auto 0.3 % (0-2); Eosinophils Absolute Auto 0.1 X10*3/uL (0.0-0.4); Eosinophils Percent Auto 1.4 % (0-4); Hematocrit 43.3 % (42.0-52.0); Hemoglobin 14.2 g/dl (14.0-18.0); INTERNATIONAL NORM RATIO 1.1 (0.9-1.1); Imm Gran Abs Auto 0.03 X10*3/uL (0.00-0.03); Imm Gran Pct Auto 0.4 % (0.0-0.4); Lymphocytes Absolute Auto 3.7 X10*3/uL (1.2-4.9); Lymphocytes Percent Auto 50.1 % (20-40); Mean Corpuscular HGB Conc 32.8 g/dl (31.0-36.0); Mean Corpuscular Hemoglobin 29.2 pg (27.0-33.0); Mean Corpuscular Volume 89.1 fL (80.0-98.0); Mean Platelet Volume 9.5 fL (9.4-12.4); Monocytes Absolute Auto 0.8 X10*3/uL (0.1-1.2); Monocytes Percent Auto 11.3 % (2-11); Neutrophils Absolute Auto 2.7 x10*3/uL (2.0-8.3); Neutrophils Percent Auto 36.5 % (45-73); Platelet Count 238 X10*3/uL (160-400); Prothrombin Time 12.6 SEC (9.9-13.0); Red Blood Count 4.86 X10*6/uL (4.60-5.80); White Blood Count 7.4 X10*3/uL (4.8-10.8)
[2021-12-21 16:58] LABS: Ammonia 36 umol/L (13-55)
[2021-12-21 17:00] LABS: Partial Thromboplastin Time 29.8 SEC (24.1-38.0)
[2021-12-21 17:07] LABS: Alanine Aminotransferase 47 U/L (0-40); Albumin Level 4.1 g/dL (3.5-5.0); Alkaline Phosphatase 94 U/L (39-117); Anion Gap 11 (12-20); Aspartate Amino Transferase 24 U/L (5-37); Bilirubin Direct 0.2 mg/dL (0.0-0.5); Bilirubin Total 0.6 mg/dL (0.0-1.0); Blood Urea Nitrogen 9 mg/dL (9-16); Calcium 9.8 mg/dL (8.4-10.2); Carbon Dioxide 27 mmol/L (22-29); Chloride 104 mmol/L (96-108); Estimated Glomerular Filt Rate > 60; Glucose Random 85 mg/dL (60-115); Potassium 4.5 mmol/L (3.3-5.1); Sodium 137 mmol/L (135-145)
[2021-12-21 17:13] LABS: Troponin-I High Sensitivity < 3.5 ng/L (<3.5-35.0)
[2021-12-21 17:16] LABS: Stroke Lab Use COMPLETE
[2021-12-21 17:32] VITALS: BP 129/71; PULSE 73; RESP 15; O2SAT 97
[2021-12-21 17:41] LABS: Appearance Urine CLEAR; Color Urine YELLOW; Glucose Urine UA NEG (NEG); Leukocyte Esterase Urine NEG (NEG); Nitrite Urine NEG (NEG); Specific Gravity - Urine <= 1.005 (1.005-1.025); Urine Blood NEG (NEG); Urine Ketones NEG (NEG); Urine Protein NEG (NEG-TRACE)
[2021-12-21 18:24] VITALS: BP 141/86; PULSE 72; RESP 14; O2SAT 99
--- NOTE | 2021-12-21 18:36 | PC.NURSE ---
PATIENT WAS ABLE TO AMBULATE WITH [facility] . NO ASSISTANCE NEEDED. STAFF WAS ON STANDBY AT PATIENTS SIDE .NO COMPLAINTS.
[2021-12-21] MEDS: Clopidogrel Bisulfate 75 MG TABLET PO (19:02)
[2021-12-21 23:29] VITALS: BP 142/84; PULSE 79; RESP 16; TEMP 36.8; O2SAT 99
== END 2021-12-22 00:04 | disposition skilled nursing facility (03) ==
PROVIDERS: Emergency Medicine Emergency Medical Services; Emergency Provider Internal Medicine; PCP Hospitalist
DX: G45.9 Transient cerebral ischemic attack, unspecified (principal); R56.9 Unspecified convulsions; M54.2 Cervicalgia; Z79.899 Other long term (current) drug therapy
CPT/HCPCS: 36415; 70450; 70496; 70498; 80048; 80076; 81003; 82140; 82550; 82947; 84484; 85025; 85610; 85730; 93005; 96360; 99285; Q9967

== ENCOUNTER 2021-12-28 14:39 | Emergency (ER) | payer MEDICARE, MEDICAID, SELFPAY ==
[2021-12-28] VITALS (8 sets, daily range): BP systolic 117–164; BP diastolic 70–92; PULSE 70–81; RESP 16–18; O2SAT 98–99; BMI 38.2
--- NOTE | ~2021-12-28 | XR_ITS ---
EXAMINATION: XR CHEST CLINICAL INFORMATION: CVA COMPARISON: None TECHNIQUE: Frontal view of the chest was obtained. FINDINGS: The cardiac and mediastinal contours are normal. There is increased attenuation of the left hemithorax compared to the right probably related to overlying soft tissues. The lungs are otherwise clear. There is no pleural effusion or pneumothorax. Bony structures are unremarkable. XR/XR chest 1V IMPRESSION: Increased attenuation of the left hemithorax compared to the right probably related to overlying soft tissues.
--- NOTE | ~2021-12-28 | CT_ITS ---
EXAMINATION: CT ANGIOGRAM NECK WITH CONTRAST CT ANGIOGRAM BRAIN WITH CONTRAST CLINICAL INFORMATION: Left MCA dense stroke. COMPARISON: CTA head and neck 12/21/2021. TECHNIQUE: Test bolus sequences followed by intravenous administration 100 mL of Omnipaque 350. Helical imaging was performed in the axial plane from the thoracic inlet to the skull vertex. Delayed postcontrast imaging of the head was also performed. The data was processed at the lead technologist in cytogenetics workstation for generation of MIP sequences. Angled MIPs and volume rendered reformatted images were also generated at an offline 3D workstation. Stenoses are assessed in accordance with NASCET criteria unless otherwise indicated. This CT examination was performed using dose optimization techniques as appropriate, variously including the following: *Automated exposure control *Adjustment of mA and/or kV according to patient size (this includes techniques or standardized protocols for targeted exams where dose is matched to indication/reason for exam; i.e. extremities or head) *Use of iterative reconstruction technique DLP: 2647 mGy-cm FINDINGS: Head CT: There is no intracranial hemorrhage, extra-axial collection, significant mass effect. There is chronic infarction within the left frontoparietal lobe and temporal lobe. Superior to the chronic infarct there is new area of hypodensity compatible with acute infarction within the MCA distribution involving the frontal and parietal lobes extending to the operculum. The ventricles are normal in size without hydrocephalus. Chronic hypoattenuation in the cerebral white matter most likely represents sequela of chronic microangiopathy. Chronic encephalomalacia and gliosis in the right anterior inferior frontal lobe is noted. The extracranial structures are within normal limits. There is no hydrocephalus. Neck CTA: A small filling defect is seen within the proximal left internal carotid artery compatible with thrombus is demonstrated on series 7 image [id number]. No significant stenosis related to this thrombus. The left cervical internal carotid artery is otherwise patent through the supraclinoid segment. The bilateral common and left internal carotid artery are patent. Both vertebral arteries are patent. Head CTA: Intracranial ICAs are patent. There is focal thrombotic occlusion of the left A1 FAHAD. The right A1 segment is not opacified. The A2 segments are nonopacified. There is mild opacification of the more distal FAHAD branches including the A3 segment. There is focal occlusion of the distal left M1 segment. The left-sided MCA collaterals are significantly decreased compared with the contralateral side. The right MCA appears patent. The vertebral arteries and basilar artery are patent. There is a well-developed left posterior communicating artery which is patent. Both ticketing clerk are patent. No discrete aneurysm is seen. Non-vascular findings: The cervical soft tissues are within normal limits. No gross lung consolidation is seen. Multilevel degenerative changes are seen within the spine resulting mild to moderate stenosis. CT/CT angio head neck stroke IMPRESSION: CT head: Evolving acute infarction in the left MCA vascular territory involving the frontal and parietal lobes as well as the operculum and seen superior to the areas of chronic infarction which involves the frontal lobe, parietal lobe, and temporal lobe. No gross hemorrhage identified. Redemonstration of chronic infarction within the right anterior inferior frontal lobe. CTA neck: Free floating thrombus within the proximal left internal carotid artery. No significant stenosis related to this thrombus. Remainder of the major neck arteries are patent. CTA head: Focal occlusion of the distal left M1. Occlusion of the left and right A1 and A2 segments. This critical result was discussed with Dr. Mariano on 12/28/2021 3:23 PM, and it was ascertained that the content and urgency of the report was understood at the time of direct communication.
--- NOTE | ~2021-12-28 | CT_ITS ---
EXAMINATION: CT HEAD WITHOUT CONTRAST (STROKE PROTOCOL) CLINICAL INFORMATION: Stroke protocol. Right-sided weakness since 2:00 PM. COMPARISON: December 21, 2021 and October 15, 2021 TECHNIQUE: Contiguous axial imaging was performed from the skull base to vertex without intravenous administration of contrast. This CT examination was performed using dose optimization techniques as appropriate, variously including the following: *Automated exposure control *Adjustment of mA and/or kV according to patient size (this includes techniques or standardized protocols for targeted exams where dose is matched to indication/reason for exam; i.e. extremities or head) *Use of iterative reconstruction technique DLP: 869 mGy-cm FINDINGS: There is again noted to be diminished density consistent with the known chronic left middle cerebral artery stroke with high density within the left middle cerebral artery and anterior cerebral artery. Large region of encephalomalacia with loss of kumar-white matter interface is seen involving the frontal, parietal, and portions of the occipital lobe on the left. No intracranial hemorrhage is identified. No hydrocephalus. No midline structure shift. No definite new region of diminished density to suggest an acute infarct is seen. Ventricles are symmetrical. . . The left-sided sulci are difficult to appreciate however this was similar to prior studies within the regions of encephalomalacia. No definite focal mass is appreciated.. The calvarium appears intact. There is no pneumocephalus or orbital emphysema. The visualized sinuses and middle ears and mastoid air cells show no significant mucosal thickening. There are no air-fluid levels. CT/CT head for stroke IMPRESSION: No acute intracranial pathology. Old large left middle cerebral artery infarct without significant change. MRI may be of help in further evaluation. This critical result was discussed with Rafael Montero MD at 1508 p.m. hours on December 28, 2021. It was ascertained that the content and urgency of the report was understood at the time of direct communication.
--- NOTE | 2021-12-28 14:42 | ECG_ITS ---
Test Reason : ams Blood Pressure : / mmHG Vent. Rate : 078 BPM Atrial Rate : 078 BPM P-R Int : 170 ms QRS Dur : 096 ms QT Int : 372 ms P-R-T Axes : 073 018 037 degrees QTc Int : 424 ms Normal sinus rhythm Normal ECG When compared with ECG of 21-DEC-2021 16:22, No significant change was found Referred By: Rafael Montero Electronically Signed By:STUART RASHID
[2021-12-28 14:47] LABS: Prothrombin Time Whole Bld POC 13.7 sec (11.1-13.5); ~PT, ~INR - Anti Coag Clinic 1.1 (0.9-1.1)
[2021-12-28 14:51] LABS: Glucose, Whole Blood 96 mg/dL (60-115)
[2021-12-28] MEDS: iohexoL 350 MG/ML 100 ML INFUS..BTL 70 ML IV (15:14)
[2021-12-28 15:21] LABS: MANUAL DIFF FLAG NO
--- NOTE | 2021-12-28 15:21 | PC.NURSE ---
Addendum entered by Joanna Fritz 12/28/21 15:34: initial note incorrect. should have read facial droop noted . right facial droop noted. Original Note: shortly after TPA administration pt continues to have right sided weakness upper and lower extrmity. unable to hold both in air. grasps weaker on right. no facial droop noted.
[2021-12-28 15:25] LABS: Basophils Percent Auto 0.3 % (0-2); Eosinophils Absolute Auto 0.1 X10*3/uL (0.0-0.4); Eosinophils Percent Auto 1.9 % (0-4); Hematocrit 38.5 % (42.0-52.0); Hemoglobin 12.7 g/dl (14.0-18.0); Imm Gran Abs Auto 0.02 X10*3/uL (0.00-0.03); Imm Gran Pct Auto 0.3 % (0.0-0.4); Lymphocytes Absolute Auto 2.8 X10*3/uL (1.2-4.9); Lymphocytes Percent Auto 44.2 % (20-40); Mean Corpuscular Hemoglobin 29.1 pg (27.0-33.0); Mean Corpuscular Volume 88.3 fL (80.0-98.0); Mean Platelet Volume 9.5 fL (9.4-12.4); Monocytes Absolute Auto 0.6 X10*3/uL (0.1-1.2); Monocytes Percent Auto 9.6 % (2-11); Neutrophils Absolute Auto 2.7 x10*3/uL (2.0-8.3); Neutrophils Percent Auto 43.7 % (45-73); Platelet Count 243 X10*3/uL (160-400); Red Blood Count 4.36 X10*6/uL (4.60-5.80); Red Cell Distribution Width 12.9 % (11.0-16.0); White Blood Count 6.3 X10*3/uL (4.8-10.8)
[2021-12-28 15:29] LABS: INTERNATIONAL NORM RATIO 1.3 (0.9-1.1); Prothrombin Time 14.4 SEC (9.9-13.0)
--- NOTE | 2021-12-28 15:29 | ED_ITS ---
HPI - Neuro Symptoms/Deficit General Chief Complaint: Stroke Stated Complaint: STROKE ALERT,RT SIDED WEAKNESS Time Seen by Provider: 12/28/21 14:40 Source: EMS Mode of arrival: EMS Limitations: language barrier History of Present Illness HPI Narrative: Patient is 46 years old from detention with history schizophrenia, left MCA CVA with aphasia, type 2 diabetes mellitus, hypertension, COPD, obesity, BPH came here for acute weakness of the right side started at 14:00. Apparently patient was sitting talking to a counselor all of a sudden right-sided went limp and unable to lift his right hand or right leg and had r facial droop with slightly slurred speech. Patient with previous CVA , still able to ambulate independently. Patient was seen on 12/21 for increased weakness and difficulty in walking and confusion at that time CTA head and CT head was negative for any acute and patient's symptoms improved at time of discharge patient was on aspirin before and clopidogrel was added on. No recent fall or head injury Related Data Home Medications Medication Instructions Recorded Confirmed COVID-19 vacc,mRNA([employer])(PF) 30 ml IM 09/21/20 mcg/0.3 mL IM susp (purple) atorvastatin 40 mg tablet 40 mg PO DAILY 09/21/20 divalproex 250 mg tablet,delayed 250 mg PO BID 09/21/20 release divalproex 500 mg tablet,delayed 500 mg PO BID 09/21/20 release dulaglutide 1.5 mg/0.5 mL mg SUBCUT 09/21/20 subcutaneous pen injector famotidine 20 mg tablet 20 mg PO BID 09/21/20 haloperidol 5 mg tablet 5 mg PO BID 09/21/20 insulin human U-100 NPH-regulr SUBCUT 09/21/20 70-30 mix 100 unit/mL subcutaneous susp lactulose 10 gram/15 mL oral PO BID 09/21/20 solution levocarnitine 330 mg tablet 660 mg PO TID 09/21/20 12/21/21 lisinopril 5 mg tablet 10 mg PO DAILY 09/21/20 12/21/21 metformin 1,000 mg tablet 1,000 mg PO BID 09/21/20 pregabalin 50 mg capsule mg PO 09/21/20 propranolol 10 mg tablet 10 mg PO BID 09/21/20 solifenacin 5 mg tablet mg PO 09/21/20 tamsulosin 0.4 mg capsule 0.4 mg PO BEDTIME 09/21/20 12/21/21 acetaminophen 325 mg tablet 650 mg PO Q4H PRN 12/21/21 12/21/21 (Tylenol) aspirin 81 mg chewable tablet 81 mg PO DAILY 12/21/21 12/21/21 bisacodyl 10 mg rectal suppository 10 mg FL DAILY PRN 12/21/21 12/21/21 simethicone 80 mg tablet 80 mg PO TID 12/21/21 12/21/21 solifenacin 5 mg tablet (Vesicare) 5 mg PO DAILY 12/21/21 12/21/21 Previous Rx's Medication Instructions Recorded clopidogrel 75 mg tablet (Plavix) 75 mg PO DAILY #30 tab 12/21/21 Allergies Allergy/AdvReac Type Severity Reaction Status Date / Time No Known Allergies Allergy Verified 09/21/20 09:35 Review of Systems Review of Systems: Yes all other systems are reviewed and are negative [facility] Past Medical History Medical History Benign prostatic hyperplasia with lower urinary tract symptoms BPH (benign prostatic hyperplasia) BPH associated with nocturia Schizophrenia Urinary incontinence Social History Social History Alcohol intake: never Patient Tobacco Use Status: Never used Tobacco Advance Directives: No Advance Directives Information Provided: No Physical Exam Vital Signs: Vital Signs: Last Vital Signs Pulse 75 12/28/21 15:58 Resp 18 12/28/21 15:58 BP 147/82 H 12/28/21 15:58 Pulse Ox 98 12/28/21 15:58 BMI result Body Mass Index 38.2 Appearance: Alert. Oriented X3. No acute distress. Eyes: PERRLA, No Nystagmus ENT: Pharynx normal. Oral Mucosa moist Neck: Normal inspection. Neck supple. CVS: Normal heart rate and rhythm. Pulses normal. Respiratory: No respiratory distress. Equal air entry bilateral, no wheezing/rales/rhonchi Abdomen: Soft and nontender. Bowel sounds are present, no mass palpable, no CVA tenderness Skin: Skin warm and dry. Normal skin color. Normal skin turgor. Extremities: No lower extremity edema. No calf tenderness Neuro: Oriented X 3. Right-sided UE and LE 0/5 No sensory deficit.No cerebellar signs , cranial nerves II-XII intact right facial droop MDM - Neuro Symptoms/Deficit MDM Narrative Medical decision making narrative: Patient 46 years old with with old left MCA stroke came with acute weakness CT brain showed left MCA evolving acute infarction CTA showed free-floating thrombus proximal left ICA and occlusion of L M1. patient received tPA at 15:[address] Whiting advised transfer to [facility]. Case discussed Dr. Altman at [facility] neuro intervention will take the patient for thrombectomy Medical Records Attestation: I reviewed the patient's medical records. Lab Data Attestation: I reviewed the patient's lab results. Result diagrams: 12/28/21 15:15 12/28/21 15:15 Labs: Lab Results 12/28/21 12/28/21 12/28/21 Range/Units 14:43 14:48 15:15 WBC 6.3 (4.8-10.8) X10*3/uL RBC 4.36 L (4.60-5.80) X10*6/uL Hgb 12.7 L (14.0-18.0) g/dl Hct 38.5 L (42.0-52.0) % MCV 88.3 (80.0-98.0) fL MCH 29.1 (27.0-33.0) pg MCHC 33.0 (31.0-36.0) g/dl RDW 12.9 (11.0-16.0) % Plt Count 243 (160-400) X10*3/uL MPV 9.5 (9.4-12.4) fL Immature Gran % (Auto) 0.3 (0.0-0.4) % Neut % (Auto) 43.7 L (45-73) % Lymph % (Auto) 44.2 H (20-40) % Beauregard % (Auto) 9.6 (2-11) % Eos % (Auto) 1.9 (0-4) % Baso % (Auto) 0.3 (0-2) % Lymph # (Auto) 2.8 (1.2-4.9) X10*3/uL Beauregard # (Auto) 0.6 (0.1-1.2) X10*3/uL Eos # (Auto) 0.1 (0.0-0.4) X10*3/uL Baso # (Auto) 0.0 (0.0-0.2) X10*3/uL Abs Immat Gran (auto) 0.02 (0.00-0.03) X10*3/uL Absolute Neuts (auto) 2.7 (2.0-8.3) x10*3/uL Absolute Nucleated RBC 0.000 (0.0-0.012) X10*3/uL Nucleated RBC % (auto) 0.0 (0.0-0.2) /100WBC PT (9.9-13.0) SEC Whole Blood PT 13.7 H (11.1-13.5) sec INR (0.9-1.1) Whole Blood INR 1.1 (0.9-1.1) Sodium (135-145) mmol/L Potassium (3.3-5.1) mmol/L Chloride (96-108) mmol/L Carbon Dioxide (22-29) mmol/L Anion Gap (12-20) BUN (9-16) mg/dL Creatinine (0.5-1.4) mg/dL Estim Creat Clear Calc Estimated GFR POC Glucose 96 (60-115) mg/dL Random Glucose (60-115) mg/dL Calcium (8.4-10.2) mg/dL Troponin I High Sens (<3.5-35.0) ng/L Hold Red Top COVID-19 (RITESH) (Negative) COVID-19 Clin Com 12/28/21 12/28/21 12/28/21 Range/Units 15:15 15:15 15:15 WBC (4.8-10.8) X10*3/uL RBC (4.60-5.80) X10*6/uL Hgb (14.0-18.0) g/dl Hct (42.0-52.0) % MCV (80.0-98.0) fL MCH (27.0-33.0) pg MCHC (31.0-36.0) g/dl RDW (11.0-16.0) % Plt Count (160-400) X10*3/uL MPV (9.4-12.4) fL Immature Gran % (Auto) (0.0-0.4) % Neut % (Auto) (45-73) % Lymph % (Auto) (20-40) % Beauregard % (Auto) (2-11) % Eos % (Auto) (0-4) % Baso % (Auto) (0-2) % Lymph # (Auto) (1.2-4.9) X10*3/uL Beauregard # (Auto) (0.1-1.2) X10*3/uL Eos # (Auto) (0.0-0.4) X10*3/uL Baso # (Auto) (0.0-0.2) X10*3/uL Abs Immat Gran (auto) (0.00-0.03) X10*3/uL Absolute Neuts (auto) (2.0-8.3) x10*3/uL Absolute Nucleated RBC (0.0-0.012) X10*3/uL Nucleated RBC % (auto) (0.0-0.2) /100WBC PT 14.4 H (9.9-13.0) SEC Whole Blood PT (11.1-13.5) sec INR 1.3 H (0.9-1.1) Whole Blood INR (0.9-1.1) Sodium 137 (135-145) mmol/L Potassium 4.4 (3.3-5.1) mmol/L Chloride 107 (96-108) mmol/L Carbon Dioxide 24 (22-29) mmol/L Anion Gap 10 L (12-20) BUN 8 L (9-16) mg/dL Creatinine 0.89 (0.5-1.4) mg/dL Estim Creat Clear Calc 148.4 Estimated GFR > 60 POC Glucose (60-115) mg/dL Random Glucose 91 (60-115) mg/dL Calcium 9.1 D (8.4-10.2) mg/dL Troponin I High Sens < 3.5 (<3.5-35.0) ng/L Hold Red Top COVID-19 (RITESH) (Negative) COVID-19 Clin Com 12/28/21 12/28/21 Range/Units 15:15 15:33 WBC (4.8-10.8) X10*3/uL RBC (4.60-5.80) X10*6/uL Hgb (14.0-18.0) g/dl Hct (42.0-52.0) % MCV (80.0-98.0) fL MCH (27.0-33.0) pg MCHC (31.0-36.0) g/dl RDW (11.0-16.0) % Plt Count (160-400) X10*3/uL MPV (9.4-12.4) fL Immature Gran % (Auto) (0.0-0.4) % Neut % (Auto) (45-73) % Lymph % (Auto) (20-40) % Beauregard % (Auto) (2-11) % Eos % (Auto) (0-4) % Baso % (Auto) (0-2) % Lymph # (Auto) (1.2-4.9) X10*3/uL Beauregard # (Auto) (0.1-1.2) X10*3/uL Eos # (Auto) (0.0-0.4) X10*3/uL Baso # (Auto) (0.0-0.2) X10*3/uL Abs Immat Gran (auto) (0.00-0.03) X10*3/uL Absolute Neuts (auto) (2.0-8.3) x10*3/uL Absolute Nucleated RBC (0.0-0.012) X10*3/uL Nucleated RBC % (auto) (0.0-0.2) /100WBC PT (9.9-13.0) SEC Whole Blood PT (11.1-13.5) sec INR (0.9-1.1) Whole Blood INR (0.9-1.1) Sodium (135-145) mmol/L Potassium (3.3-5.1) mmol/L Chloride (96-108) mmol/L Carbon Dioxide (22-29) mmol/L Anion Gap (12-20) BUN (9-16) mg/dL Creatinine (0.5-1.4) mg/dL Estim Creat Clear Calc Estimated GFR POC Glucose (60-115) mg/dL Random Glucose (60-115) mg/dL Calcium (8.4-10.2) mg/dL Troponin I High Sens (<3.5-35.0) ng/L Hold Red Top See Note COVID-19 (RITESH) Negative (Negative) COVID-19 Clin Com See Note Imaging Data CT scan - head: Attestation: I personally reviewed and interpreted this imaging study as follows: Radiologist's impression: [id number] [place] [address] CT Scan Report Signed Patient: Cirilo Quiros MR#: [id number] : 1975 Acct:[id number] Age/Sex: 46 / M ADM Date: 12/28/21 Loc: HO.ED Attending Dr: Ordering Physician: Rafael Montero MD Date of Service: 12/28/21 Procedure(s): CT angio head? neck stroke Accession Number(s): [id number] cc: Rafael Montero MD~ EXAMINATION: CT ANGIOGRAM NECK WITH CONTRAST CT ANGIOGRAM BRAIN WITH CONTRAST CLINICAL INFORMATION: Left MCA dense stroke.? COMPARISON: CTA head and neck 12/21/2021. TECHNIQUE: Test bolus sequences followed by intravenous administration 100 mL of Omnipaque 350. Helical imaging was performed in the axial plane from the thoracic inlet to the skull vertex. Delayed postcontrast imaging of the head was also performed. The data was processed at the staff cytotechnologist workstation for generation of MIP sequences. Angled MIPs and volume rendered reformatted images were also generated at an offline 3D workstation. Stenoses are assessed in accordance with NASCET criteria unless otherwise indicated. This CT examination was performed using dose optimization techniques as appropriate, variously including the following: *Automated exposure control *Adjustment of mA and/or kV according to patient size (this includes techniques or standardized protocols for targeted exams where dose is matched to indication/reason for exam; i.e. extremities or head) *Use of iterative reconstruction technique DLP: 2647 mGy-cm FINDINGS: Head CT: There is no intracranial hemorrhage, extra-axial collection, significant mass effect. There is chronic infarction within the left frontoparietal lobe and temporal lobe. Superior to the chronic infarct there is new area of hypodensity compatible with acute infarction within the MCA distribution involving the frontal and parietal lobes extending to the operculum. The ventricles are normal in size without hydrocephalus. Chronic hypoattenuation in the cerebral white matter most likely represents sequela of chronic microangiopathy. Chronic encephalomalacia and gliosis in the right anterior inferior frontal lobe is noted. The extracranial structures are within normal limits. There is no hydrocephalus. Neck CTA: A small filling defect is seen within the proximal left internal carotid artery compatible with thrombus is demonstrated on series 7 image [id number]/[id number]. No significant stenosis related to this thrombus. The left cervical internal carotid artery is otherwise patent through the supraclinoid segment. The bilateral common and left internal carotid artery are patent. Both vertebral arteries are patent. Head CTA: Intracranial ICAs are patent. There is focal thrombotic occlusion of the left A1 FAHAD. The right A1 segment is not opacified. The A2 segments are nonopacified. There is mild opacification of the more distal FAHAD branches including the A3 segment. There is focal occlusion of the distal left M1 segment. The left-sided MCA collaterals are significantly decreased compared with the contralateral side. The right MCA appears patent. The vertebral arteries and basilar artery are patent. There is a well-developed left posterior communicating artery which is patent. Both ferryboat ticket taker are patent. No discrete aneurysm is seen. Non-vascular findings: The cervical soft tissues are within normal limits. No gross lung consolidation is seen. Multilevel degenerative changes are seen within the spine resulting mild to moderate stenosis. CT/CT angio head? neck stroke IMPRESSION: CT head: Evolving acute infarction in the left MCA vascular territory involving the frontal and parietal lobes as well as the operculum and seen superior to the areas of chronic infarction which involves the frontal lobe, parietal lobe, and temporal lobe. No gross hemorrhage identified. Redemonstration of chronic infarction within the right anterior inferior frontal lobe. ? CTA neck: Free floating thrombus within the proximal left internal carotid artery. No significant stenosis related to this thrombus. Remainder of the major neck arteries are patent. ? CTA head: Focal occlusion of the distal left M1. Occlusion of the left and right A1 and A2 segments. ? This critical result was discussed with Dr. Mariano on 12/28/2021 3:23 PM, and it was ascertained that the content and urgency of the report was understood at the time of direct communication. ? Dictated By: NIESHA SUTTON MD Signed By: <Electronically signed by NIESHA SUTTON MD in OV> 12/28/[address] [address] [address] Scan Report Signed Patient: Cirilo Quiros MR#: [id number] : 1975 Acct:[id number] Age/Sex: 46 / M ADM Date: 12/28/21 Loc: HO.ED Attending Dr: Ordering Physician: Rafael Montero MD Date of Service: 12/28/21 Procedure(s): CT head for stroke Accession Number(s): [id number] cc: Rafael Montero MD~ EXAMINATION: CT HEAD WITHOUT CONTRAST (STROKE PROTOCOL) CLINICAL INFORMATION: Stroke protocol. Right-sided weakness since 2:00 PM.? COMPARISON: December 21, 2021 and October 15, 2021 TECHNIQUE: Contiguous axial imaging was performed from the skull base to vertex without intravenous administration of contrast. This CT examination was performed using dose optimization techniques as appropriate, variously including the following: *Automated exposure control *Adjustment of mA and/or kV according to patient size (this includes techniques or standardized protocols for targeted exams where dose is matched to indication/reason for exam; i.e. extremities or head) *Use of iterative reconstruction technique DLP: 869 mGy-cm FINDINGS: There is again noted to be diminished density consistent with the known chronic left middle cerebral artery stroke with high density within the left middle cerebral artery and anterior cerebral artery. Large region of encephalomalacia with loss of kumar-white matter interface is seen involving the frontal, parietal, and portions of the occipital lobe on the left. No intracranial hemorrhage is identified. No hydrocephalus. No midline structure shift. No definite new region of diminished density to suggest an acute infarct is seen. Ventricles are symmetrical. . . The left-sided sulci are difficult to appreciate however this was similar to prior studies within the regions of encephalomalacia. No definite focal mass is appreciated.. The calvarium appears intact. There is no pneumocephalus or orbital emphysema.? The visualized sinuses and middle ears and mastoid air cells show no significant mucosal thickening. There are no air-fluid levels. CT/CT head for stroke IMPRESSION: No acute intracranial pathology. ? Old large left middle cerebral artery infarct without significant change. ? MRI may be of help in further evaluation. ? This critical result was discussed with Rafael Montero MD at 1508 p.m. hours on December 28, 2021. It was ascertained that the content and urgency of the report was understood at the time of direct communication. Dictated By: Sidney Altamirano MD Signed By: <Electronically signed by Sidney Altamirano MD in OV> 12/28/21 1518 DD/ 1502 TD/TT:? Slotter Operator Helper: JAG ECG Data Attestation: I personally reviewed and interpreted this ECG as follows: Interpretation: Normal sinus rhythm heart rate 78 beats per minute normal interval normal axis no acute ischemia and impression normal EKG NIH Stroke Scale Internal: Initial- Upon Arrival Level of Consciousness: Alert Visual: Partial hemianopia Motor Arm (Right): No movement Motor Arm (Left): No drift Motor Leg (Right): No movement Motor Leg (Left): No drift Critical Care Time Critical Care Time Critical Care Time: Yes Total Critical Care Time: 60 Attestation: I spent 60 minutes of critical care, with interventions, assessments, speaking to patient, consultants, and family. Discharge Plan Discharge Clinical Impression: Cerebrovascular accident Patient Disposition: [facility] Transfer Details: [facility] Ed for Dr. Altman Prescriptions: No Action acetaminophen [Tylenol] 325 mg Tablet 650 mg PO Q4H PRN (Reason: Fever) 0RF bisacodyl [Biscolax] 10 mg Suppository 10 mg FL DAILY PRN (Reason: Constipation) 0RF aspirin 81 mg Tablet,Chewable 81 mg PO DAILY 0RF solifenacin [Vesicare] 5 mg Tablet 5 mg PO DAILY 0RF simethicone 80 mg Tablet 80 mg PO TID 0RF clopidogrel [Plavix] 75 mg tablet 75 mg PO DAILY Qty: 30 0RF levocarnitine 330 mg tablet 660 mg PO TID 0RF tamsulosin 0.4 mg capsule 0.4 mg PO BEDTIME 0RF lisinopril 5 mg tablet 10 mg PO DAILY 0RF
--- NOTE | 2021-12-28 15:30 | PC.NURSE ---
no change in neuro exam. no obvious signs of bleeding. md on phone with [facility] for transfer. market research coordinator at bedside.
[2021-12-28 15:33] LABS: Stroke Lab Use COMPLETE
[2021-12-28 15:36] LABS: Anion Gap 10 (12-20); Blood Urea Nitrogen 8 mg/dL (9-16); Calcium 9.1 mg/dL (8.4-10.2); Carbon Dioxide 24 mmol/L (22-29); Chloride 107 mmol/L (96-108); Creatinine Clr Calc Pharmacy 148.4; Estimated Glomerular Filt Rate > 60; Glucose Random 91 mg/dL (60-115); Potassium 4.4 mmol/L (3.3-5.1); Sodium 137 mmol/L (135-145)
[2021-12-28 15:44] LABS: Troponin-I High Sensitivity < 3.5 ng/L (<3.5-35.0)
--- NOTE | 2021-12-28 15:50 | PC.NURSE ---
remains alert. able to follow commands. still has no strength on right arm/grasp and no strength in RLE. right facial droop remains. skin pwd. nsr on monitor. awaits transport to accepting facility.
--- NOTE | 2021-12-28 15:53 | PC.NURSE ---
cleansed of incontinent urine.
--- NOTE | 2021-12-28 15:59 | MHC.STROKE ---
Addendum entered by Makayla Temple RN 12/28/21 16:44: [id number] GREATER THAN 30 MINUTES DUE TO CARE TEAM DETERMINING ELIGIBILITY DUE TO RECENT FALL 12/21/21 AND COMPARING RECENT CTA ON 12/21/21. EMS DEPARTED [facility] AT 1615. [id number] 96 MINUTES. Original Note: EMS PRE-NOTIFIED STROKE ALERT AT 1433, ARRIVED AT 1439. ONSET OF STROKE SYMPTOMS AT 1400. ALERT, RIGHT HEMIPARESIS, APHASIA, DYSARTRIA (SOME DEFICITS FROM PRIOR STROKE) NIHSS = 14. DIRECT TO CT AT 1447, FOLLOWED BY CTA H/N, CLARIFYING RISKS DUE TO PRIOR FALL, PATIENT WAS AT [facility] ON 12/21/21 FOR FALL, CT AND CTA DONE AT THAT TIME, NO LVO. DR. MILLER SPOKE WITH DR HARO AND TPA-ALTEPLASE INDICATED. NO BLEED ON CT, +LVO LEFT MCA. BP WITHIN RANGE TO GIVE TPA. TPA ALTEPLASE BOLUS GIVEN AT 1514. FOLLOWED INFUSION TOTAL DOSE 90MG. FAILED SWALLOW SCREEN. COORDINATING TRANSFER TO TERTIARY FACILITY FOR THROMBECTOMY. PMH: FROM [facility] WITH [place] MEDICAID/MEDICARE, CVA WITH APHASIA, HTN, HLD, DM, COPD, DEMENTIA, SCHIZOPHRENIA, OBESITY, BPH.
[2021-12-28 16:05] LABS: COVID-19 Test Negative (Negative)
--- NOTE | 2021-12-28 16:12 | PC.NURSE ---
Pt remains at baseline mental status. Pt remains aphasic at this time, responsive to questions asked. Report given to [facility] ER by EVITA Nj. TPA infusion finished at [facility] ER prior to transfer.
--- NOTE | 2021-12-28 16:19 | PC.NURSE ---
rn to rn with kale at [facility] ED. Pt leaving ED at this time with ALS crew.
--- NOTE | 2021-12-28 16:37 | PC.NURSE ---
Update to Mother, Alexsandra, Alexsandra requests that update be given to pt's daughter, Hien.
== END 2021-12-28 16:22 | disposition short-term general hospital (02) ==
PROVIDERS: Emergency Provider Internal Medicine
DX: I63.9 Cerebral infarction, unspecified (principal); I69.320 Aphasia following cerebral infarction; F20.9 Schizophrenia, unspecified; Z79.899 Other long term (current) drug therapy; Z20.822 Contact with and (suspected) exposure to COVID-19
CPT/HCPCS: 36415; 70450; 70496; 70498; 71045; 80048; 82947; 84484; 85025; 85610; 87635; 93005; 99285; 99291; J2997; Q9967